=== PATIENT | male | born 1950 | race Caucasian/White ===

== ENCOUNTER 2017-06-02 09:57 | Outpatient (RCR) | payer MEDICARE, BC ==
[2015-09-15 12:28] VITALS: Wt 95.8 kg
[2017-06-02 10:34] LABS: PLATELET COUNT, AUTOMATED 129 K/uL (150-450)
[2017-06-06 13:07] VITALS: BP 125/78
--- NOTE | 2017-06-06 17:44 | ONCOLOGY FOLLOW UP NOTE ---
EVENT DATE: June 06, 2017 DIAGNOSES 1. Rectal adenocarcinoma. 2. 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 3. Hypertension. CHIEF COMPLAINT The patient is here today for followup of his rectal adenocarcinoma. ONCOLOGY HISTORY The patient is a 66-year-old male, presentation rectal bleeding and obstipation. DIAGNOSTIC EVALUATION Colonoscopy done on June 23, 2014 which revealed a large rectal mass at 13 cm from the anal verge with partial obstruction and the biopsy came back positive for tubulovillous adenopathy with focal high grade dysplasia. PROCEDURES 1. Rigid proctoscopy with biopsy done on June 28, 2014. Pathology came back positive for moderately differentiated adenocarcinoma. 2. Rectal segmental dissection done on October 13, 2014. STAGING WORKUP 1. Pelvic MRI done on June 24, 2014 showed a large mass extending from the upper rectum to the distal sigmoid with prominent less than 1 cm lymph nodes in the mesorectum. 2. PET/CT done on June 27, 2014 showed large hypermetabolic mass in the upper rectum/distal sigmoid colon with 2 cm hypermetabolic right thyroid nodule. The lymph nodes in the mesorectum were not hypermetabolic. TREATMENT 1. The patient received neoadjuvant chemo-radiation with 5-FU intravenous continuous infusion during radiation therapy between July 25, 2014 through August. 2. The patient started adjuvant chemotherapy with FOLFOX chemotherapy with 5-FU , leucovorin and oxaliplatin on November 22, 2014. The patient completed twelve courses of FOLFOX on June 06, 2015. 3. The patient received neoadjuvant chemoradiation with 5-FU intravenous continuous infusion during radiation therapy received between July 25, 2014 through September 01, 2014. 4. The patient received twelve courses of FOLFOX adjuvant chemotherapy with 5- FU, leucovorin and Oxaliplatin between November 22, 2014 through June 06, 2015. PATHOLOGY Pathology came back positive for moderately differentiated adenocarcinoma extending through the full thickness of the bowel wall and involving the pericolonic adipose tissue. One lymph node came back positive for metastatic cancer. STAGE Stage III (t3N1M0). HISTORY OF PRESENT ILLNESS Patient is here today for followup of his rectal adenocarcinoma. He is doing fine currently. He has occasional cough and diarrhea. His neuropathy in the hands and feet is still the same since his last visit without any deterioration. PAST MEDICAL HISTORY Insignificant except for history of untreated hypertension. PAST SURGICAL HISTORY 1. Biceps repair on the right side. 2. History of hernia repair. 3. Thyroid nodule, fine-needle aspiration for Hrthle cell neoplasm done on June 28, 2014. 4. Thyroid lobectomy done in June 2014. SOCIAL HISTORY Patient is single with no children. 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 He was not a heavy smoker before. He has 1 to 2 beers a day. Denies any abuse of drugs. FAMILY HISTORY Mother with colon cancer and pancreatic cancer. Maternal uncle with colon cancer and pancreatic cancer. Sister with thyroid cancer. Paternal uncle with prostate cancer. CURRENT MEDICATIONS 1. Vitamin B6 100 mg twice daily. 2. Lutein 20 mg three times daily. 3. Metoprolol 25 mg daily. 4. Percocet 5/325, one to two q.4h. p.r.n. for pain. 5. Levothyroxine 100 mcg daily. ALLERGIES No known drug allergies. REVIEW OF SYSTEMS CONSTITUTIONAL: No appetite or weight change. No fever, chills or sweating. No recent infection. HEENT: Ears: No tinnitus or hearing problem. Nose: No nasal discharge or epistaxis. Throat: No sore throat or mouth ulcers. Eyes: No diplopia or visual changes. RESPIRATORY: Patient has occasional cough. CARDIOVASCULAR: No chest pain, orthopnea, or paroxysmal nocturnal dyspnea (PND) . No edema. No palpitations. GASTROINTESTINAL: He has occasional diarrhea. GENITOURINARY: No hematuria or dysuria. MUSCULOSKELETAL: He has pain in the right elbow. NEUROLOGICAL: He has stable tingling and numbness in the hands and feet from previous chemotherapy-induced neuropathy. HEMATOLOGIC/LYMPHATIC: No bleeding or easy bruising. No weakness or fatigued. No enlarged lymph nodes. SKIN: No skin rash or lumps. PSYCHIATRIC: No anxiety or depression. PHYSICAL EXAMINATION GENERAL: Looks stable. Well-developed, well-nourished, and in no acute distress. VITAL SIGNS: Blood pressure 125/78, pulse 82 per minute, respirations 16 per minute, temperature 97.1, pulse oximetry 92% on room air. HEENT: Head: Atraumatic. No sinus tenderness to palpation. Eyes: No icterus or conjunctivitis. Mouth and throat: No oral thrush or mucositis. NECK: Supple. No cervical or supraclavicular lymphadenopathy. LUNGS: Clear to auscultation and percussion bilaterally. HEART: Regular rate and rhythm. No gallops, murmurs, clicks or rubs. ABDOMEN: Soft and lax. No tenderness. No hepatosplenomegaly. No masses. EXTREMITIES: No cyanosis, clubbing or edema. LYMPHATICS: No peripheral lymphadenopathy. NEUROLOGICAL: Conscious, alert and oriented times three. No focal motor or sensory deficits. PSYCHIATRIC: Mood and affect appear normal. SKIN: No skin rash, bruise or purpuric eruption. DIAGNOSTIC/LABORATORY STUDIES CBC showed a white count of 7.2, hemoglobin 16.2, hematocrit 46.2, platelets 129 ,000. Chem panel totally normal except serum creatinine 1.6. CEA is 1.1. ASSESSMENT 1. Rectal adenocarcinoma status post neoadjuvant chemotherapy with 5-FU intravenous continuous infusion concurrent with radiation therapy received between July 22, 2014 through September 01, 2014. This was followed by rectal segmental resection done October 13, 2014, and pathology came back positive for poorly differentiated adenocarcinoma extending through the full thickness of the wall of the bowel and involving the pericolonic adipose tissue. One lymph node was positive for metastasis. Tumor was staged as stage III (T3 N1 M0). After that the patient received 12 courses of adjuvant chemotherapy with FOLFOX regimen between February 21, 2015 through June 06, 2015. His treatment was complicated with oxaliplatin-induced neuropathy, which is stable. His current CEA is 1.1 which is normal. I am planning to see him again in three months with CBC, chem panel and CEA. Generally speaking he is doing really very well currently. 2. 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 Will continue to monitor. 3. Hypertension, on treatment. PLAN 1. Continue followup. 2. Patient to return in three months with CBC, chem panel and CEA. 3. Patient is to contact us for any new concerns or complaints. MTDD
== END 2017-06-20 14:51 | disposition home or self-care (01) ==
LOC: SPU 09:57
PROVIDERS: ATTEND Internal Medicine Hematology
DX: C20 Malignant neoplasm of rectum (principal); C77.9 Secondary and unspecified malignant neoplasm of lymph node, unspecified; Z92.21 Personal history of antineoplastic chemotherapy; Z92.3 Personal history of irradiation; G62.0 Drug-induced polyneuropathy; T45.1X5A Adverse effect of antineoplastic and immunosuppressive drugs, initial encounter; I10 Essential (primary) hypertension; Z87.891 Personal history of nicotine dependence; Z79.899 Other long term (current) drug therapy
CPT/HCPCS: 36415; 82040; 82247; 82310; 82374; 82378; 82435; 82465; 82565; 82947; 83718; 84075; 84132; 84155; 84295; 84450; 84460; 84478; 84520; 85025

== ENCOUNTER → 2017-06-02 | Outpatient (CLI) | payer MEDICARE, BC ==
[2015-09-15 12:28] VITALS: BMI 27.2
[~2017-06-02] MED LIST: ACET-1966 PO; AMOX-559 PO; ASPI-757 PO; DOCU250C8 PO; GOLYTE PO; IBUP200C71 PO; LEVO-3 PO; LOPE2CAP88 PO; LOR1 PO; LORA10CA3 PO; LUTE20CA11 PO; METO25TA23 PO; METO25TA91 PO; PER PO; PROC10TA4 PO; PSYL3.4P2 PO; PYRI100T57 PO; TAMS0.4C70 PO; VITAMIN B PO; [UNRECOGNIZED DRUG - CODE] PO; thyroid med PO
[2017-06-02 10:47] VITALS: BP 120/75
--- NOTE | 2017-06-06 17:44 | ONCOLOGY FOLLOW UP NOTE ---
EVENT DATE: June 06, 2017 DIAGNOSES 1. Rectal adenocarcinoma. 2. 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 3. Hypertension. CHIEF COMPLAINT The patient is here today for followup of his rectal adenocarcinoma. ONCOLOGY HISTORY The patient is a 66-year-old male, presentation rectal bleeding and obstipation. DIAGNOSTIC EVALUATION Colonoscopy done on June 23, 2014 which revealed a large rectal mass at 13 cm from the anal verge with partial obstruction and the biopsy came back positive for tubulovillous adenopathy with focal high grade dysplasia. PROCEDURES 1. Rigid proctoscopy with biopsy done on June 28, 2014. Pathology came back positive for moderately differentiated adenocarcinoma. 2. Rectal segmental dissection done on October 13, 2014. STAGING WORKUP 1. Pelvic MRI done on June 24, 2014 showed a large mass extending from the upper rectum to the distal sigmoid with prominent less than 1 cm lymph nodes in the mesorectum. 2. PET/CT done on June 27, 2014 showed large hypermetabolic mass in the upper rectum/distal sigmoid colon with 2 cm hypermetabolic right thyroid nodule. The lymph nodes in the mesorectum were not hypermetabolic. TREATMENT 1. The patient received neoadjuvant chemo-radiation with 5-FU intravenous continuous infusion during radiation therapy between July 25, 2014 through August. 2. The patient started adjuvant chemotherapy with FOLFOX chemotherapy with 5-FU , leucovorin and oxaliplatin on November 22, 2014. The patient completed twelve courses of FOLFOX on June 06, 2015. 3. The patient received neoadjuvant chemoradiation with 5-FU intravenous continuous infusion during radiation therapy received between July 25, 2014 through September 01, 2014. 4. The patient received twelve courses of FOLFOX adjuvant chemotherapy with 5- FU, leucovorin and Oxaliplatin between November 22, 2014 through June 06, 2015. PATHOLOGY Pathology came back positive for moderately differentiated adenocarcinoma extending through the full thickness of the bowel wall and involving the pericolonic adipose tissue. One lymph node came back positive for metastatic cancer. STAGE Stage III (t3N1M0). HISTORY OF PRESENT ILLNESS Patient is here today for followup of his rectal adenocarcinoma. He is doing fine currently. He has occasional cough and diarrhea. His neuropathy in the hands and feet is still the same since his last visit without any deterioration. PAST MEDICAL HISTORY Insignificant except for history of untreated hypertension. PAST SURGICAL HISTORY 1. Biceps repair on the right side. 2. History of hernia repair. 3. Thyroid nodule, fine-needle aspiration for Hrthle cell neoplasm done on June 28, 2014. 4. Thyroid lobectomy done in June 2014. SOCIAL HISTORY Patient is single with no children. He works as a tow truck driver. 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 He was not a heavy smoker before. He has 1 to 2 beers a day. Denies any abuse of drugs. FAMILY HISTORY Mother with colon cancer and pancreatic cancer. Maternal uncle with colon cancer and pancreatic cancer. Sister with thyroid cancer. Paternal uncle with prostate cancer. CURRENT MEDICATIONS 1. Vitamin B6 100 mg twice daily. 2. Lutein 20 mg three times daily. 3. Metoprolol 25 mg daily. 4. Percocet 5/325, one to two q.4h. p.r.n. for pain. 5. Levothyroxine 100 mcg daily. ALLERGIES No known drug allergies. REVIEW OF SYSTEMS CONSTITUTIONAL: No appetite or weight change. No fever, chills or sweating. No recent infection. HEENT: Ears: No tinnitus or hearing problem. Nose: No nasal discharge or epistaxis. Throat: No sore throat or mouth ulcers. Eyes: No diplopia or visual changes. RESPIRATORY: Patient has occasional cough. CARDIOVASCULAR: No chest pain, orthopnea, or paroxysmal nocturnal dyspnea (PND) . No edema. No palpitations. GASTROINTESTINAL: He has occasional diarrhea. GENITOURINARY: No hematuria or dysuria. MUSCULOSKELETAL: He has pain in the right elbow. NEUROLOGICAL: He has stable tingling and numbness in the hands and feet from previous chemotherapy-induced neuropathy. HEMATOLOGIC/LYMPHATIC: No bleeding or easy bruising. No weakness or fatigued. No enlarged lymph nodes. SKIN: No skin rash or lumps. PSYCHIATRIC: No anxiety or depression. PHYSICAL EXAMINATION GENERAL: Looks stable. Well-developed, well-nourished, and in no acute distress. VITAL SIGNS: Blood pressure 125/78, pulse 82 per minute, respirations 16 per minute, temperature 97.1, pulse oximetry 92% on room air. HEENT: Head: Atraumatic. No sinus tenderness to palpation. Eyes: No icterus or conjunctivitis. Mouth and throat: No oral thrush or mucositis. NECK: Supple. No cervical or supraclavicular lymphadenopathy. LUNGS: Clear to auscultation and percussion bilaterally. HEART: Regular rate and rhythm. No gallops, murmurs, clicks or rubs. ABDOMEN: Soft and lax. No tenderness. No hepatosplenomegaly. No masses. EXTREMITIES: No cyanosis, clubbing or edema. LYMPHATICS: No peripheral lymphadenopathy. NEUROLOGICAL: Conscious, alert and oriented times three. No focal motor or sensory deficits. PSYCHIATRIC: Mood and affect appear normal. SKIN: No skin rash, bruise or purpuric eruption. DIAGNOSTIC/LABORATORY STUDIES CBC showed a white count of 7.2, hemoglobin 16.2, hematocrit 46.2, platelets 129 ,000. Chem panel totally normal except serum creatinine 1.6. CEA is 1.1. ASSESSMENT 1. Rectal adenocarcinoma status post neoadjuvant chemotherapy with 5-FU intravenous continuous infusion concurrent with radiation therapy received between July 22, 2014 through September 01, 2014. This was followed by rectal segmental resection done October 13, 2014, and pathology came back positive for poorly differentiated adenocarcinoma extending through the full thickness of the wall of the bowel and involving the pericolonic adipose tissue. One lymph node was positive for metastasis. Tumor was staged as stage III (T3 N1 M0). After that the patient received 12 courses of adjuvant chemotherapy with FOLFOX regimen between February 21, 2015 through June 06, 2015. His treatment was complicated with oxaliplatin-induced neuropathy, which is stable. His current CEA is 1.1 which is normal. I am planning to see him again in three months with CBC, chem panel and CEA. Generally speaking he is doing really very well currently. 2. 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 Will continue to monitor. 3. Hypertension, on treatment. PLAN 1. Continue followup. 2. Patient to return in three months with CBC, chem panel and CEA. 3. Patient is to contact us for any new concerns or complaints. MTDD
== END ==
LOC: SPU 10:00
PROVIDERS: ATTEND Physician Assistant
DX: E78.00 Pure hypercholesterolemia, unspecified (principal)
CPT/HCPCS: 36415; 82465; 83718; 84478

== ENCOUNTER 2017-09-10 01:14 | Day surgery (SDC) | payer MEDICARE, BC ==
[2015-09-15 12:28] VITALS: Ht 175.3 cm; Wt 89.4 kg
[~2017-09-10] VITALS: Ht 175.3 cm; Wt 89.4 kg
[2017-09-10] MEDS ORDERED: PROPOFOL EMUL(*) 10MG/ML 20 ML 40 ML ONE (06:55)
[2017-09-10] MEDS ORDERED: LIDOCAINE MPF 1% 5 ML VIAL ONE (06:55)
[2017-09-10 09:24] VITALS: BP 123/77
[2017-09-10] MEDS ORDERED: NORMOSOL R SOLN(*) 1000 ML BAG 1,000 ML IV PRN (09:30)
[2017-09-10] MEDS ORDERED: LIDOCAINE/SOD BICARB 8.4% SYR ID ONE (09:30)
[2017-09-10 11:35] VITALS: BP 90/60
--- NOTE | 2017-09-10 11:40 | Short(Outpt) Discharge Summary ---
Discharge Summary Reason for Hosp/Final Diag: (1) Rectal adenocarcinoma Status: Resolved Hospital Course & Plan: Colonoscopy completed without any problems. Departure Discharge to: Home, Self Care Discharge Instructions Home Meds Active Scripts Peg/Electrolytes (GOLYTELY SOLUTION) 4,000 Ml Soln, 1 GAL PO ONCE, #1 GAL 0 Refills Prov:DAVID EASON MD 06/25/17 Reported Medications Pyridoxine Hcl (VITAMIN B-6) Unknown Strength Tablet, 1 TAB PO BID 12/18/15 Lutein (LUTEIN) 20 Mg Capsule, 20 MG PO TID, CAPSULE 02/03/15 Levothyroxine Sodium (LEVOTHYROXINE SODIUM) 100 Mcg Tablet, 1 TAB PO QDAY 09/30/14 Diet: Regular Activity: As Tolerated Special Instructions: Your colonoscopy was completed without any problems and your prep was excellent (Good Job!!). I didn't find any cancer or polyps. I recommend that your next colonoscopy be in 3 years for continued surveillance. DAVID EASON MD Sep 10, 2017 11:39
[2017-09-10 11:45] VITALS: BP 107/67
[2017-09-10 12:00] VITALS: BP 102/68
[2017-09-10 12:11] VITALS: BP 116/77
[2017-09-10 12:13] VITALS: BP 117/79
== END 2017-09-10 12:35 | disposition home or self-care (01) ==
LOC: OR 01:14
PROVIDERS: ATTEND Surgery
DX: Z12.11 Encounter for screening for malignant neoplasm of colon (principal); Z85.048 Personal history of other malignant neoplasm of rectum, rectosigmoid junction, and anus
CPT/HCPCS: 00812; G0121; J2001; J2704

== ENCOUNTER 2017-09-26 15:17 | Outpatient (RCR) | payer MEDICARE, BC ==
[2015-09-15 12:28] VITALS: BMI 27.2
[2017-09-08 09:11] VITALS: BP 126/76
[2017-09-08 09:20] LABS: PLATELET COUNT, AUTOMATED 120 K/uL (150-450)
[~2017-09-26 15:17] MED LIST changes: +IBUP-136 PO; -IBUP200C71 PO
[2017-09-26 15:31] VITALS: BP 114/79
--- NOTE | 2017-09-26 19:05 | ONCOLOGY FOLLOW UP NOTE ---
EVENT DATE: September 26, 2017 DIAGNOSES 1. Rectal adenocarcinoma. 2. 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 3. Hypertension. CHIEF COMPLAINT The patient is here today for followup of his rectal adenocarcinoma. ONCOLOGY HISTORY The patient is a 67-year-old male, presentation rectal bleeding and obstipation. DIAGNOSTIC EVALUATION Colonoscopy done on June 23, 2014 which revealed a large rectal mass at 13 cm from the anal verge with partial obstruction and the biopsy came back positive for tubulovillous adenopathy with focal high grade dysplasia. PROCEDURES 1. Rigid proctoscopy with biopsy done on June 28, 2014. Pathology came back positive for moderately differentiated adenocarcinoma. 2. Rectal segmental dissection done on October 13, 2014. STAGING WORKUP 1. Pelvic MRI done on June 24, 2014 showed a large mass extending from the upper rectum to the distal sigmoid with prominent less than 1 cm lymph nodes in the mesorectum. 2. PET/CT done on June 27, 2014 showed large hypermetabolic mass in the upper rectum/distal sigmoid colon with 2 cm hypermetabolic right thyroid nodule. The lymph nodes in the mesorectum were not hypermetabolic. TREATMENT 1. The patient received neoadjuvant chemo-radiation with 5-FU intravenous continuous infusion during radiation therapy between July 25, 2014 through August. 2. The patient started adjuvant chemotherapy with FOLFOX chemotherapy with 5-FU , leucovorin and oxaliplatin on November 22, 2014. The patient completed twelve courses of FOLFOX on June 06, 2015. 3. The patient received neoadjuvant chemoradiation with 5-FU intravenous continuous infusion during radiation therapy received between July 25, 2014 through September 01, 2014. 4. The patient received twelve courses of FOLFOX adjuvant chemotherapy with 5- FU, leucovorin and Oxaliplatin between November 22, 2014 through June 06, 2015. PATHOLOGY Pathology came back positive for moderately differentiated adenocarcinoma extending through the full thickness of the bowel wall and involving the pericolonic adipose tissue. One lymph node came back positive for metastatic cancer. STAGE Stage III (t3N1M0). HISTORY OF PRESENT ILLNESS Patient is here today for followup of his rectal adenocarcinoma. He is doing very well currently. He had a colonoscopy on September 10, 2017 which was clean. He continues to have neuropathy in his hands and feet, more in the feet than the hands, from his previous chemotherapy. PAST MEDICAL HISTORY Insignificant except for history of untreated hypertension. PAST SURGICAL HISTORY 1. Biceps repair on the right side. 2. History of hernia repair. 3. Thyroid nodule, fine-needle aspiration for Hrthle cell neoplasm done on June 28, 2014. 4. Thyroid lobectomy done in June 2014. SOCIAL HISTORY Patient is single with no children. 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 He was not a heavy smoker before. He has 1 to 2 beers a day. Denies any abuse of drugs. FAMILY HISTORY Mother with colon cancer and pancreatic cancer. Maternal uncle with colon cancer and pancreatic cancer. Sister with thyroid cancer. Paternal uncle with prostate cancer. CURRENT MEDICATIONS 1. Vitamin B6 100 mg twice daily. 2. Lutein 20 mg three times daily. 3. Metoprolol 25 mg daily. 4. Percocet 5/325, one to two q.4h. p.r.n. for pain. 5. Levothyroxine 100 mcg daily. ALLERGIES No known drug allergies. REVIEW OF SYSTEMS CONSTITUTIONAL: No appetite or weight change. No fever, chills or sweating. No recent infection. HEENT: Ears: No tinnitus or hearing problem. Nose: No nasal discharge or epistaxis. Throat: No sore throat or mouth ulcers. Eyes: No diplopia or visual changes. RESPIRATORY: Patient has occasional cough. CARDIOVASCULAR: No chest pain, orthopnea, or paroxysmal nocturnal dyspnea (PND) . No edema. No palpitations. GASTROINTESTINAL: He has occasional diarrhea. GENITOURINARY: No hematuria or dysuria. MUSCULOSKELETAL: He has pain in the right elbow. NEUROLOGICAL: He has neuropathy in his hands and feet, more in the feet than the hands, from his previous chemotherapy. HEMATOLOGIC/LYMPHATIC: No bleeding or easy bruising. No weakness or fatigued. No enlarged lymph nodes. SKIN: No skin rash or lumps. PSYCHIATRIC: No anxiety or depression. PHYSICAL EXAMINATION GENERAL: Looks stable. Well-developed, well-nourished, and in no acute distress. VITAL SIGNS: Blood pressure 114/79, pulse 83 per minute, respirations 16 per minute, temperature 97.5 pulse oximetry 93% on room air. HEENT: Head: Atraumatic. No sinus tenderness to palpation. Eyes: No icterus or conjunctivitis. Mouth and throat: No oral thrush or mucositis. NECK: Supple. No cervical or supraclavicular lymphadenopathy. LUNGS: Clear to auscultation and percussion bilaterally. HEART: Regular rate and rhythm. No gallops, murmurs, clicks or rubs. ABDOMEN: Soft and lax. No tenderness. No hepatosplenomegaly. No masses. EXTREMITIES: No cyanosis, clubbing or edema. LYMPHATICS: No peripheral lymphadenopathy. NEUROLOGICAL: Conscious, alert and oriented times three. No focal motor or sensory deficits. PSYCHIATRIC: Mood and affect appear normal. SKIN: No skin rash, bruise or purpuric eruption. DIAGNOSTIC/LABORATORY STUDIES CBC showed a white count of 5.3, hemoglobin 16.6, hematocrit 47.1, platelets 120 ,000. Chem panel totally normal except creatinine 1.4, AST 37. CEA is normal at 1.3. ASSESSMENT 1. Rectal adenocarcinoma status post neoadjuvant chemotherapy with 5-FU intravenous continuous infusion concurrent with radiation therapy received between July 22, 2014 through September 01, 2014. This was followed by rectal segmental resection done October 13, 2014. Pathology came back positive for poorly differentiated adenocarcinoma extending through the full thickness of the wall of the bowel and involving the pericolonic adipose tissue. One lymph node was positive for metastasis. Tumor was staged as stage III (T3 N1 M0). After that the patient received 12 courses of adjuvant chemotherapy with FOLFOX regimen between February 21, 2015 through June 06, 2015. His treatment was complicated with oxaliplatin-induced neuropathy, which is stable. His current CEA is 1.3. He had a colonoscopy on September 10, 2017 which was clean with no polyps or malignancy. I am planning to continue followup. I will see him again in three months with CBC, chem panel and CEA. 2. 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 3. Hypertension, on treatment. PLAN 1. Continue followup. 2. Patient to return in three months with CBC, chem panel and CEA. 3. Patient is to contact us for any new concerns or complaints. [facility]
== END 2017-09-30 14:27 | disposition home or self-care (01) ==
LOC: ONC 15:17
PROVIDERS: ATTEND Internal Medicine Hematology
DX: C20 Malignant neoplasm of rectum (principal); G62.0 Drug-induced polyneuropathy; I10 Essential (primary) hypertension; Z92.21 Personal history of antineoplastic chemotherapy; Z92.3 Personal history of irradiation; Z87.891 Personal history of nicotine dependence; Z79.899 Other long term (current) drug therapy
CPT/HCPCS: 36415; 82378; 85025; G0463; 82040; 82247; 82310; 82374; 82435; 82565; 82947; 84075; 84132; 84155; 84295; 84450; 84460; 84520; 99212

== ENCOUNTER 2018-01-09 13:41 | Outpatient (RCR) | payer MEDICARE, BC ==
[2015-09-15 12:28] VITALS: Wt 94.8 kg
[2017-12-26 08:51] LABS: PLATELET COUNT, AUTOMATED 133 K/uL (150-450)
[2018-01-09 13:50] VITALS: BP 120/73
--- NOTE | 2018-01-09 22:04 | ONCOLOGY FOLLOW UP NOTE ---
EVENT DATE: January 09, 2018 DIAGNOSES 1. Rectal adenocarcinoma. 2. 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 3. Hypertension. CHIEF COMPLAINT Patient is here today for followup of his rectal adenocarcinoma. ONCOLOGY HISTORY The patient is a 67-year-old male presented with rectal bleeding and obstipation. DIAGNOSTIC EVALUATION Colonoscopy done on June 23, 2014, which revealed a large rectal mass at 13 cm from the anal verge with partial obstruction, and the biopsy came back positive for tubulovillous adenopathy with focal high-grade dysplasia. PROCEDURES 1. Rigid proctoscopy with biopsy done on June 28, 2014. Pathology came back positive for moderately differentiated adenocarcinoma. 2. Rectal segmental dissection done on October 13, 2014. STAGING WORKUP 1. Pelvic MRI done on June 24, 2014, showed a large mass extending from the upper rectum to the distal sigmoid with prominent, less than 1 cm lymph nodes in the mesorectum. 2. PET/CT done on June 27, 2014, showed large hypermetabolic mass in the upper rectum/distal sigmoid colon with 2 cm hypermetabolic right thyroid nodule. The lymph nodes in the mesorectum were not hypermetabolic. TREATMENT 1. The patient received neoadjuvant chemoradiation with 5-FU intravenous continuous infusion during radiation therapy between July 25, 2014, through September 01, 2014. 2. The patient started adjuvant chemotherapy with FOLFOX chemotherapy with 5- FU, leucovorin, and OXALIPLATIN on November 22, 2014. The patient completed 12 courses of FOLFOX on June 06, 2015. PATHOLOGY Pathology came back positive for moderately differentiated adenocarcinoma extending through the full thickness of the bowel wall and involving the pericolonic adipose tissue. One lymph node came back positive for metastatic cancer. STAGE Stage III (T3 N1 M0). HISTORY OF PRESENT ILLNESS Patient is here today for followup of his rectal adenocarcinoma. He is doing very well currently. He is complaining of occasional dry cough. He has also some pain his elbows. His neuropathy in the fingertips and feet is getting better. PAST MEDICAL HISTORY Insignificant except for history of untreated hypertension. PAST SURGICAL HISTORY 1. Biceps repair on the right side. 2. History of hernia repair. 3. Thyroid nodule. 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 4. Thyroid lobectomy done in June 2014. SOCIAL HISTORY Patient is single with no children. He works as a fork truck operator. 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 He was not a heavy smoker before. He has one to two beers a day. Denies any abuse of drugs. FAMILY HISTORY Mother with colon cancer and pancreatic cancer. Maternal uncle with colon cancer and pancreatic cancer. Sister with thyroid cancer. Paternal uncle with prostate cancer. CURRENT MEDICATIONS 1. Vitamin B6 100 mg twice daily. 2. Lutein 20 mg three times daily. 3. Metoprolol 25 mg daily. 4. Percocet 5/325 one to two q.4 hours p.r.n. for pain. 5. Levothyroxine 100 mcg daily. ALLERGIES No known drug allergies. REVIEW OF SYSTEMS CONSTITUTIONAL: No appetite or weight change. No fever, chills, or sweating. No recent infection. HEENT: Ears: No tinnitus or hearing problem. Nose: No nasal discharge or epistaxis. Throat: No sore throat or mouth ulcers. Eyes: No diplopia or visual changes. RESPIRATORY: No shortness of breath. He has a dry cough. No expectoration or hemoptysis. CARDIOVASCULAR: No chest pain, orthopnea, or paroxysmal nocturnal dyspnea (PND). No edema. No palpitations. GASTROINTESTINAL: No nausea or vomiting. No diarrhea or constipation. No change in bowel movements. No heartburn or swallowing difficulties. No abdominal pain. No jaundice. No hematemesis, melena, or rectal bleeding. GENITOURINARY: No hematuria or dysuria. MUSCULOSKELETAL: He has pain in the elbows. NEUROLOGICAL: He has neuropathy with tingling and numbness in the fingertips and feet which is getting better. No headaches or convulsions. HEMATOLOGIC/LYMPHATIC: No bleeding or easy bruising. No weakness or fatigue. No enlarged lymph nodes. SKIN: No skin rash or lumps. PSYCHIATRIC: No anxiety or depression. PHYSICAL EXAMINATION GENERAL: Looks stable. Well developed, well nourished, and in no acute distress. VITAL SIGNS: Blood pressure 120/73, pulse 86 per minute, respirations 16 per minute, temperature 97.4, pulse ox 95% on room air. HEENT: Head: Atraumatic. No sinus tenderness to palpation. Eyes: No icterus or conjunctivitis. Mouth and throat: No oral thrush or mucositis. NECK: Supple. No cervical or supraclavicular lymphadenopathy. LUNGS: Clear to auscultation and percussion bilaterally. HEART: Regular rate and rhythm. No gallops, murmurs, clicks, or rubs. ABDOMEN: Soft and lax. No tenderness. No hepatosplenomegaly. No masses. EXTREMITIES: No cyanosis, clubbing, or edema. LYMPHATICS: No peripheral lymphadenopathy. NEUROLOGICAL: Conscious, alert, and oriented times three. No focal motor or sensory deficits. PSYCHIATRIC: Mood and affect appear normal. SKIN: No skin rash, bruise, or purpuric eruption. DIAGNOSTIC DATA CBC showed white count 7.2, hemoglobin 15.4, hematocrit 44.9, platelet count 133,000. Chem panel is totally normal except serum creatinine 1.3. CEA is normal at 1.1. ASSESSMENT 1. Rectal adenocarcinoma, status post neoadjuvant chemotherapy with 5-FU intravenous continuous infusion concurrent with radiation therapy received between July 22, 2014, through September 01, 2014. This was followed by rectal segmental resection done October 13, 2014. Pathology came back positive for poorly differentiated adenocarcinoma extending through the full thickness of the wall of the bowel and involving the pericolonic adipose tissue. One lymph node was positive for metastasis. Tumor was staged as stage III (T3 N1 M0). Patient received 12 courses of adjuvant chemotherapy with FOLFOX regimen between February 21, 2015, through June 06, 2015. His treatment was complicated with oxaliplatin-induced neuropathy, which is getting better currently. His current CEA is 1.1. His last colonoscopy was on the August, and it was clean with no polyps or malignancy. I am planning to continue followup. I will see him again in three months with CBC, chemistry panel, and CEA. 2. 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 It is getting better. 3. Hypertension, on treatment. PLAN 1. Continue followup. 2. Patient to return in three months with CBC, chem panel, and CEA. 3. Patient is to contact us for any new concern or complaints. [facility]
== END 2018-03-26 ==
LOC: ONC 13:41
PROVIDERS: ATTEND Internal Medicine Hematology
DX: C20 Malignant neoplasm of rectum (principal); Z92.21 Personal history of antineoplastic chemotherapy; Z92.3 Personal history of irradiation; G62.0 Drug-induced polyneuropathy; I10 Essential (primary) hypertension; Z87.891 Personal history of nicotine dependence
CPT/HCPCS: 36415; 82378; 85025; G0463; 82040; 82247; 82310; 82374; 82435; 82565; 82947; 84075; 84132; 84155; 84295; 84450; 84460; 84520; 99212

== ENCOUNTER 2018-04-10 14:30 | Outpatient (RCR) | payer MEDICARE, BC ==
[2015-09-15 12:28] VITALS: Wt 98.0 kg
[2018-04-06 13:32] VITALS: BP 128/79
[2018-04-06 13:37] LABS: PLATELET COUNT, AUTOMATED 141 K/uL (150-450)
[2018-04-10 14:40] VITALS: BP 130/80
--- NOTE | 2018-04-14 03:44 | ONCOLOGY FOLLOW UP NOTE ---
EVENT DATE: April 10, 2018 CHIEF COMPLAINT Followup for rectal cancer. HISTORY OF PRESENT ILLNESS Patient is a 67-year-old male who was seen today in three-month followup for rectal adenocarcinoma. Overall, he feels well. He describes having had a GI "flu" with nausea, vomiting, and diarrhea. This was followed by a "cold," but he feels improved now. He has some mild peripheral neuropathy from the oxaliplatin, bur overall feels much better. He describes occasional loose stools, but feels that this is more food related. He denies any other new complaints. ONCOLOGY HISTORY Patient presented with rectal bleeding and obstipation in June 2014. Colonoscopy revealed a large rectal mass at 13 cm from the anal verge, with partial obstruction. Biopsy was positive for tubulovillous adenocarcinoma with high-grade dysplasia. Pelvic MRI showed a large mass extending from the upper rectum to the distal sigmoid with prominent less than 1 cm lymph nodes. PET-CT on 06/27/14 showed the large hypermetabolic mass with 2 cm hypermetabolic right thyroid nodules. The lymph nodes in the mesorectum were not hypermetabolic. He completed neoadjuvant chemoradiation with 5FU from 07/25/14 through 09/01/14. Underwent rectal segmental dissection on 10/13/14. He completed 12 courses of adjuvant FOLFOX from 11/22/14 through 06/06/15. MEDICAL HISTORY 1. Rectal carcinoma, June 2014. 2. Untreated hypertension. 3. Chronic renal insufficiency. 4. Hypothyroidism. SURGICAL HISTORY 1. Rectal segmental dissection, 10/13/14. 2. Ileostomy reversal. 3. Biceps repair on the right. 4. Hernia repair. 5. Thyroid lobectomy, June 2014. FAMILY HISTORY Mother with colon cancer and pancreatic cancer. Maternal uncle with colon cancer and pancreatic cancer. Sister with thyroid cancer. Paternal uncle with prostate cancer. Cousin with multiple myeloma. SOCIAL HISTORY Patient is single. He has no children. He has worked as a local intermodal truck driver. 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 He has one to two beers a day, denies any abuse of drugs. MEDICATIONS 1. Vitamin B6 daily. 2. Lutein 20 mg t.i.d. 3. Levothyroxine 100 mcg daily. ALLERGIES ADHESIVE. No known drug allergies. REVIEW OF SYSTEMS A 12-point review of systems is performed and is negative except as stated above. PHYSICAL EXAMINATION VITAL SIGNS: Weight 98 kg, blood pressure 130/80, pulse 80, respirations 16, temperature 96.8, O2 saturation 95%. GENERAL: Patient is a well-developed, well-nourished male in no acute distress. HEAD: Normocephalic, atraumatic. EYES: Sclerae anicteric. MOUTH: Moist mucous membranes. No lesions. NECK: Supple. No palpable adenopathy. LUNGS: Clear bilaterally. CARDIOVASCULAR: Heart rate regular, 84 per minute, without murmur, S3 or S4. ABDOMEN: Soft, nontender, with active bowel sounds. No organomegaly. EXTREMITIES: No edema. NEURO: Nonfocal. LABORATORY CBC on 04/06/18 showed a WBC of 7.4, hemoglobin 16.8, hematocrit 49.2, platelets 141,000. CMP shows a creatinine of 1.5. CEA was 1.3. IMPRESSION The patient is a 67-year-old male diagnosed with rectal adenocarcinoma in June 2014. He completed neoadjuvant chemoradiation from 07/25/14 through 09/01/14. He underwent rectal segmental dissection on 10/13/14. He completed 12 cycles of adjuvant FOLFOX from 11/22/14 through 06/06/15. 1. Rectal adenocarcinoma. No signs or symptoms of disease recurrence. He generally feels well and denies any significant complaints. His bowels are for the most part within normal limits. He occasionally has loose stools, but feels it is related to food. 2. Peripheral neuropathy. Chemotherapy induced from oxaliplatin. He feels this is stable. 3. Surveillance. Last colonoscopy was on 09/10/17. He will be due again in three years. 4. Chronic renal insufficiency. Creatinine has been fairly stable, 1.5 at this time. 5. Follow up in four months for continued care. CBC, CMP, and CEA will be done before that visit. [facility]
== END 2018-05-20 07:09 | disposition home or self-care (01) ==
LOC: ONC 14:30
PROVIDERS: ATTEND Internal Medicine Hematology
DX: C20 Malignant neoplasm of rectum (principal); Z92.21 Personal history of antineoplastic chemotherapy; Z92.3 Personal history of irradiation; G62.0 Drug-induced polyneuropathy; I10 Essential (primary) hypertension; Z87.891 Personal history of nicotine dependence; T45.1X5D Adverse effect of antineoplastic and immunosuppressive drugs, subsequent encounter
CPT/HCPCS: 36415; 82378; 85025; G0463; 82040; 82247; 82310; 82374; 82435; 82565; 82947; 84075; 84132; 84155; 84295; 84450; 84460; 84520; 99212

== ENCOUNTER 2018-08-21 09:57 | Outpatient (RCR) | payer MEDICARE, BC ==
[2015-09-15 12:28] VITALS: Wt 96.0 kg
[2018-08-18 14:33] VITALS: BP 120/75
[2018-08-18 14:59] LABS: PLATELET COUNT, AUTOMATED 136 K/uL (150-450)
[2018-08-21 10:00] VITALS: BP 113/73
--- NOTE | 2018-08-21 10:37 | [facility] ONCOLOGY NOTE ---
EVENT DATE: August 21, 2018 DIAGNOSES 1. Rectal adenocarcinoma. 2. 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 3. Hypertension. CHIEF COMPLAINT Patient is here today for followup of his rectal adenocarcinoma. ONCOLOGY HISTORY The patient is a 67-year-old male presented with rectal bleeding and obstipation. DIAGNOSTIC EVALUATION Colonoscopy done on June 23, 2014, which revealed a large rectal mass at 13 cm from the anal verge with partial obstruction, and the biopsy came back positive for tubulovillous adenopathy with focal high-grade dysplasia. PROCEDURES 1. Rigid proctoscopy with biopsy done on June 28, 2014. Pathology came back positive for moderately differentiated adenocarcinoma. 2. Rectal segmental dissection done on October 13, 2014. STAGING WORKUP 1. Pelvic MRI done on June 24, 2014, showed a large mass extending from the upper rectum to the distal sigmoid with prominent, less than 1 cm lymph nodes in the mesorectum. 2. PET/CT done on June 27, 2014, showed large hypermetabolic mass in the upper rectum/distal sigmoid colon with 2 cm hypermetabolic right thyroid nodule. The lymph nodes in the mesorectum were not hypermetabolic. TREATMENT 1. The patient received neoadjuvant chemoradiation with 5-FU intravenous continuous infusion during radiation therapy between July 25, 2014, through September 01, 2014. 2. The patient started adjuvant chemotherapy with FOLFOX chemotherapy with 5- FU, leucovorin, and OXALIPLATIN on November 22, 2014. The patient completed 12 courses of FOLFOX on June 06, 2015. PATHOLOGY Pathology came back positive for moderately differentiated adenocarcinoma extending through the full thickness of the bowel wall and involving the pericolonic adipose tissue. One lymph node came back positive for metastatic cancer. STAGE Stage III (T3 N1 M0). HISTORY OF PRESENT ILLNESS Patient is here today for followup of his rectal adenocarcinoma. He is doing fine currently. He is complaining of pain in his knees. His neuropathy is stable. It is more worse on the feet than the hands. He has also occasional headache. He has also weakness, tiredness and fatigue. His creatinine actually showed mild elevation from his last visit and it increased from 1.5 to 2. PAST MEDICAL HISTORY Insignificant except for history of untreated hypertension. PAST SURGICAL HISTORY 1. Biceps repair on the right side. 2. History of hernia repair. 3. Thyroid nodule. 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 4. Thyroid lobectomy done in June 2014. SOCIAL HISTORY Patient is single with no children. 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 He was not a heavy smoker before. He has one to two beers a day. Denies any abuse of drugs. FAMILY HISTORY Mother with colon cancer and pancreatic cancer. Maternal uncle with colon cancer and pancreatic cancer. Sister with thyroid cancer. Paternal uncle with prostate cancer. CURRENT MEDICATIONS 1. Vitamin B6 100 mg twice daily. 2. Lutein 20 mg three times daily. 3. Metoprolol 25 mg daily. 4. Percocet 5/325 one to two q.4 hours p.r.n. for pain. 5. Levothyroxine 100 mcg daily. ALLERGIES No known drug allergies. REVIEW OF SYSTEMS CONSTITUTIONAL: No appetite or weight change. No fever, chills, or sweating. No recent infection. HEENT: Ears: No tinnitus or hearing problem. Nose: No nasal discharge or epistaxis. Throat: No sore throat or mouth ulcers. Eyes: No diplopia or visual changes. RESPIRATORY: No shortness of breath. He has a dry cough. No expectoration or hemoptysis. CARDIOVASCULAR: No chest pain, orthopnea, or paroxysmal nocturnal dyspnea (PND). No edema. No palpitations. GASTROINTESTINAL: No nausea or vomiting. No diarrhea or constipation. No change in bowel movements. No heartburn or swallowing difficulties. No abdominal pain. No jaundice. No hematemesis, melena, or rectal bleeding. GENITOURINARY: No hematuria or dysuria. MUSCULOSKELETAL: Patient has pain in the knees. NEUROLOGICAL: He has neuropathy, which is stable, affecting the feet more than hands. He has also occasional headache. HEMATOLOGIC/LYMPHATIC: He is weak and fatigued mildly. SKIN: No skin rash or lumps. PSYCHIATRIC: No anxiety or depression. PHYSICAL EXAMINATION GENERAL: Looks stable. Well developed, well nourished, and in no acute distress. VITAL SIGNS: Blood pressure 115/73, pulse 93 per minute, respirations 16 per minute, temperature 97, pulse ox 92% on room air. HEENT: Head: Atraumatic. No sinus tenderness to palpation. Eyes: No icterus or conjunctivitis. Mouth and throat: No oral thrush or mucositis. NECK: Supple. No cervical or supraclavicular lymphadenopathy. LUNGS: Clear to auscultation and percussion bilaterally. HEART: Regular rate and rhythm. No gallops, murmurs, clicks, or rubs. ABDOMEN: Soft and lax. No tenderness. No hepatosplenomegaly. No masses. EXTREMITIES: No cyanosis, clubbing, or edema. LYMPHATICS: No peripheral lymphadenopathy. NEUROLOGICAL: Conscious, alert, and oriented times three. No focal motor or sensory deficits. PSYCHIATRIC: Mood and affect appear normal. SKIN: No skin rash, bruise, or purpuric eruption. DIAGNOSTIC DATA CBC showed white count 7.5, hemoglobin 16.5, hematocrit 47.8, platelet count 156,000. Chem panel is totally normal except serum creatinine is 2, which is up from 1.5 from his last visit. CEA is 1.1. ASSESSMENT 1. Rectal adenocarcinoma, status post neoadjuvant chemotherapy with 5-FU intravenous continuous infusion, concurrent with radiation therapy received between July 22, 2014, through September 01, 2014. This was followed by rectal segmental resection done October 13, 2014. Pathology came back positive for poorly differentiated adenocarcinoma extending through the full thickness of the wall of the bowel and involving the pericolonic adipose tissue. One lymph node was positive for metastasis. Tumor was staged as stage III (T3 N1 M0). Patient received 12 courses of adjuvant chemotherapy with FOLFOX regimen between February 21, 2015, through June 06, 2015. His treatment was complicated with oxaliplatin-induced neuropathy, which is stable currently, affecting the feet more than the hands. His current CEA is 1.1., which is stable. He had his last colonoscopy on September 10, 2017, and it was clean with no polyps or malignancy. I am planning to continue followup. I will see him again in three months with CBC, chem panel and CEA. 2. 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 It is stable. 3. Hypertension, on treatment. 4. Acute kidney injury. His creatinine currently is 2, up from 1.5. Patient was advised to see his primary care provider for further evaluation. PLAN 1. Continue followup. 2. Patient to return in three months with CBC, chem panel and CEA. 3. Patient is to contact us for any new concern or complaints. [facility]
== END 2018-11-12 ==
LOC: ONC 09:57
PROVIDERS: ATTEND Internal Medicine Hematology
DX: Z85.048 Personal history of other malignant neoplasm of rectum, rectosigmoid junction, and anus (principal); Z92.21 Personal history of antineoplastic chemotherapy; G62.0 Drug-induced polyneuropathy; T45.1X5A Adverse effect of antineoplastic and immunosuppressive drugs, initial encounter; I10 Essential (primary) hypertension; N17.9 Acute kidney failure, unspecified; R53.1 Weakness; R53.83 Other fatigue; Z79.899 Other long term (current) drug therapy
CPT/HCPCS: 36415; 82378; 85025; G0463; 82040; 82247; 82310; 82374; 82435; 82565; 82947; 84075; 84132; 84155; 84295; 84450; 84460; 84520; 99212